=== PATIENT | female | born 1945 | race Hispanic/Latino ===

== ENCOUNTER 2018-01-03 07:37 | Day surgery (SDC) | payer MEDICARE ==
[~2018-01-03] VITALS: Ht 147.3 cm; Wt 51.5 kg
[~2018-01-03 07:37] MED LIST: LEVO137T2 PO; LOSA50TA37 PO; TYL3 PO
[2018-01-03 08:12] VITALS: BP 104/52
[2018-01-03] MEDS ORDERED: SODIUM CHLORIDE 0.9% 1000ML 1,000 ML IV ONE (08:40)
== END 2018-01-03 10:15 | disposition home or self-care (01) ==
LOC: ENDO 07:37 → DAH 07:37 → ENDO 10:15
PROVIDERS: ATTEND Internal Medicine
DX: K21.0 Gastro-esophageal reflux disease with esophagitis (principal); K31.7 Polyp of stomach and duodenum; K31.89 Other diseases of stomach and duodenum; I10 Essential (primary) hypertension; E03.9 Hypothyroidism, unspecified; Z79.899 Other long term (current) drug therapy; Z98.890 Other specified postprocedural states; Z88.8 Allergy status to other drugs, medicaments and biological substances; K29.50 Unspecified chronic gastritis without bleeding
CPT/HCPCS: 43239; 43251; 88305; 88312; 93005; A4606; J7030

== ENCOUNTER → 2018-01-10 | Outpatient (CLI) | payer MEDICARE | END | disposition home or self-care (01) | LOC: RAH 09:47 | PROVIDERS: ATTEND Internal Medicine Gastroenterology | DX: R13.12 Dysphagia, oropharyngeal phase (principal); R63.3 Feeding difficulties | CPT/HCPCS: 74230; 92611; G8996; G8997; G8998 ==

== ENCOUNTER → 2018-01-17 | Outpatient (CLI) | payer MEDICARE | END | disposition home or self-care (01) | LOC: RAH 07:51 | PROVIDERS: ATTEND Internal Medicine Gastroenterology | DX: K57.30 Diverticulosis of large intestine without perforation or abscess without bleeding (principal); I70.0 Atherosclerosis of aorta; M51.36 Other intervertebral disc degeneration, lumbar region | CPT/HCPCS: 74176 ==

== ENCOUNTER 2020-01-29 18:16 | Observation (INO) | payer MEDICARE ==
[~2020-01-29] VITALS: Ht 137.2 cm; Wt 45.4 kg
[~2020-01-29 18:16] MED LIST changes: -LOSA50TA37 PO; +LOSA50TA64 PO
[2020-01-29 20:24] LABS: BASOPHILS % (AUTO) 0.9 % (0.0-5.0); EOSINOPHILS % (AUTO) 5.2 % (0.0-8.0); HEMATOCRIT 35.5 % (36-48); LYMPHOCYTES % (AUTO) 18.2 % (21.0-51.0); MEAN CORPUSCULAR HEMOGLOBIN 27.7 pg (27.0-33.0); MEAN CORPUSCULAR VOLUME 89.4 fL (79-99); MONOCYTES % (AUTO) 9.2 % (3.0-13.0); NEUTROPHILS % (AUTO) 66.2 % (40.0-77.0); PLATELET COUNT (AUTO) 235 K/uL (130-400); RED BLOOD CELL COUNT(AUTO) 3.97 MIL/uL (4.00-5.50); RED CELL DISTRIBUTION WIDTH 13.1 % (11.0-15.5); WHITE BLOOD COUNT (AUTO) 3.3 K/uL (4.8-10.8)
[2020-01-29 20:35] LABS: CREATININE 0.8 mg/dL (0.5-1.5); POTASSIUM 3.8 mmol/L (3.5-5.1)
[2020-01-29 20:39] LABS: ALBUMIN 2.8 g/dL (3.5-5.0); BILIRUBIN,TOTAL 0.3 mg/dL (0.2-1.0); TOTAL PROTEIN, SERUM 7.1 g/dL (6.0-8.3)
[2020-01-29] MEDS ORDERED: ACETAMINOPHEN 650 MG SUPPOSITORY RC PRN (20:45)
[2020-01-29] MEDS ORDERED: ONDANSETRON HCL 4 MG/2 ML VIAL IVP PRN (20:45)
[2020-01-29 21:26] LABS: APPEARANCE,URINE Clear (CLEAR); BILIRUBIN,URINE Negative (NEGATIVE); COLOR,URINE Yellow (YELLOW); GLUCOSE, URINE (UA) Negative (NEGATIVE); KETONES,URINE Negative (NEGATIVE); LEUKOCYTE ESTERASE ,URINE Moderate (NEGATIVE); NITRATE,URINE Negative (NEGATIVE); OCCULT BLOOD,URINE Moderate (NEGATIVE); PH,URINE 6.5 (5.0-8.0); PROTEIN,URINE Negative (NEGATIVE)
[2020-01-29 21:57] LABS: BACTERIA,URINE Few /HPF (None Seen)
[2020-01-29 23:10] VITALS: BP 155/61
[2020-01-30] VITALS (19 sets, daily range): BP systolic 127–178; BP diastolic 54–93
--- NOTE | 2020-01-30 01:58 | NUR ---
stoma wound on left abdomen cleaned with normal saline, 4 x 4 gauze, medicortape, and picture taken and placed on chart.
[2020-01-30] MEDS ORDERED: PROPOFOL 10 MG/ML 20ML VIAL IV ONE ×2 (12:52→13:19)
--- NOTE | 2020-01-30 13:35 | NUR ---
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
[2020-01-30] MEDS: HYDRALAZINE HCL 20 MG/ML VIAL IV PRN (15:01)
[2020-01-30] MEDS: CEFTRIAXONE SODIUM 1 GM IVP SCH ×2 (15:01→20:48)
[2020-01-30] MEDS: SODIUM CHLORIDE 0.9% 1000ML 1,000 ML IV SCH ×2 (15:01→23:25)
--- NOTE | 2020-01-30 16:03 | NUR ---
DCP CM met with pt discussed dc plans. Pt is independent prior to admission, lives with daughter. Pt has a cane and provider daily. Denies any other equipmens/services. Feels safe to go back home, daughter able to assist with transportation and needs as necessary. DC plan to home once stable. CM to cont to follow up. Addendum: 01/30/20 at 1604 by GUDELIA GARCIA LVN CM Amended: Links added.
[2020-01-31 00:05] VITALS: BP 139/70
[2020-01-31] MEDS: HYDRALAZINE HCL 20 MG/ML VIAL IV PRN (03:06)
[2020-01-31 04:00] VITALS: BP 115/53
[2020-01-31] MEDS ORDERED: LEVOTHYROXINE 25 MCG TABLET PO SCH (06:30)
[2020-01-31] MEDS ORDERED: LEVOTHYROXINE 112 MCG TABLET PO SCH (06:30)
[2020-01-31 07:54] VITALS: BP 131/63
--- NOTE | 2020-01-31 08:15 | NUR ---
Called to notify bakery helper of consultation for tube feedings. Karen almeida.
[2020-01-31] MEDS ORDERED: LOSARTAN 50 MG TABLET PO SCH (09:00)
--- NOTE | 2020-01-31 09:07 | NUR ---
Notified spooler operator automatic Karen information regarding diet that patient had at home with Twocal bolus feedings and free water flushes provided by daughter. Karen to bring recommendation to begin tube feedings.
[2020-01-31] MEDS: SODIUM CHLORIDE 0.9% 1000ML 1,000 ML IV SCH ×2 (09:59→12:23)
--- NOTE | 2020-01-31 10:29 | NUR ---
RD NOTIFICATION Pt admitted with dislodged PEG tube. Recommend continue Tube Feedings: Recommend Jevity 1.5 continuous or Bolus feedings as needed. Continuous: Goal of 35mls/hour to provide 1260kcal, 54gm protein, 638mL free H2O Flushes: 105mL [id number] Bolus: 3.5 cans per day to provide 1243kcal, 53gm protein, 630mL Free H2O (8AM-1.5cans, 12PM-1can, 5PM-1can) Flushes 70-100mL before and after each feeding. Recommendations placed in Pt chart. RD to continue to monitor. Please notify as questions or concerns arise. Thank you. [phone]. Addendum: 01/31/20 at [address] RD Amended: Links added.
[2020-01-31 11:07] VITALS: BP 123/67
[2020-01-31] MEDS: CEFTRIAXONE SODIUM 1 GM IVP SCH (12:23)
--- NOTE | 2020-01-31 12:43 | NUR ---
RD UPDATE - TUBE FEEDING CHANGE PER FAMILY REQUEST RD notified Pt with Two Jae HN formula requested, Pt does not tolerate Jevity 1.5, per Family. Bolus feedings requested. Recommend Two Jae HN Bolus with 3 cans/day to provide 1425 kcal, 60gm protein, 498mL Free H2O. (8AM-1can, 12PM-1can, 5PM-1can). Recommended flushes: 85mls before and after each feeding. Recs to be placed in Pt chart. Please notify RD as additional concerns arise.
--- NOTE | 2020-01-31 13:30 | NUR ---
Resumed bolus feeding of Twocal HD with 80mL free water flushes. PEG patent, no report of pain or discomfort during PEG feeding by patient. PEG insertion site clean and dry, free of redness or irritation. HOB 45 degree angle, IV NS infusing at 75 mL/hr to LAC. Bed low, locked. Call randall within reach.
--- NOTE | 2020-01-31 15:09 | NUR ---
Called daughter Sydnee to review discharge instructions, PEG insertion site care and symptoms of infection or irritation to be cognisant and report if present. Patient to resume home medications and home feeding schedule with Twocal formula. Daughter verbalized understanding of instructions and will be arriving to hospital shortly to transport patient home.
--- NOTE | 2020-01-31 15:32 | NUR ---
Reviewed discharge instructions, medications and follow up recommendations with patient. Verbalized understanding that would resume home medications and bolus PEG feedings and stated her daughter would assist with her care and follow up arrangements. PIV to LAC removed, bleeding controlled and dressing applied. Patient stated unable to sign discharge. Patient assisted downstairs by Larry Mtz CNA via wheelchair, where daughter received to transport home.
== END 2020-01-31 15:55 | disposition home or self-care (01) ==
LOC: EDH 18:16 → EDHIP 20:15 → 3BH 23:16
PROVIDERS: ADMIT Internal Medicine; ATTEND Internal Medicine
DX: J38.00 Paralysis of vocal cords and larynx, unspecified (principal); K29.50 Unspecified chronic gastritis without bleeding; R13.12 Dysphagia, oropharyngeal phase; R63.4 Abnormal weight loss; I10 Essential (primary) hypertension; E03.9 Hypothyroidism, unspecified; Z43.1 Encounter for attention to gastrostomy; Z85.828 Personal history of other malignant neoplasm of skin; Z92.3 Personal history of irradiation; Z79.899 Other long term (current) drug therapy; Z88.6 Allergy status to analgesic agent; Z68.24 Body mass index [BMI] 24.0-24.9, adult
CPT/HCPCS: 36415; 43246; 80053; 81001; 85025; 87088; 96374; 96375 ×2; 96376 ×2; 99284; A4222; A4223; A4620; G0378 ×43; J0360 ×2; J0696 ×2; J2405; J2704 ×2; J7030 ×2; 43200

== ENCOUNTER → 2020-02-18 | Outpatient (CLI) | payer MEDICARE | END | disposition home or self-care (01) | LOC: SHCH 15:11 | PROVIDERS: ATTEND Internal Medicine Cardiovascular Disease | DX: I82.621 Acute embolism and thrombosis of deep veins of right upper extremity (principal) ==

== ENCOUNTER 2021-11-15 10:38 | Day surgery (SDC) | payer MEDICARE ==
[~2021-11-15] VITALS: Ht 149.9 cm; Wt 54.8 kg
[~2021-11-15 10:38] MED LIST changes: +0.9%NACL 1000ML 1,000 ML IV ONE
[2021-11-15 11:33] VITALS: BP 104/63
[2021-11-15] MEDS ORDERED: LIDOCAINE PF 100MG/5ML (2%) SYRINGE 5ML ONE (12:26)
[2021-11-15] MEDS ORDERED: PROPOFOL 10 MG/ML 20ML VIAL IV ONE (12:26)
[2021-11-15] MEDS ORDERED: GLYCOPYRROLATE 1 MG/5 ML SYRINGE ONE (12:26)
[2021-11-15] MEDS ORDERED: MIDAZOLAM HCL 1 MG/ML 2ML VIAL ONE (12:26)
[2021-11-15] MEDS ORDERED: TRAZ-185 PO (12:58)
[2021-11-15] MEDS ORDERED: CYAN50009 PO (12:59)
[2021-11-15] MEDS ORDERED: METO25TA6 PO (12:59)
[2021-11-15] MEDS ORDERED: LEVO100C4 PO (13:00)
[2021-11-15] MEDS ORDERED: DICY20TA3 PO (13:00)
[2021-11-15] MEDS ORDERED: ONDA4TAB10 PO (13:00)
== END 2021-11-15 11:45 | disposition home or self-care (01) ==
LOC: ENDO 10:38 → DAH 10:38 → ENDO 11:45
PROVIDERS: ATTEND Internal Medicine Gastroenterology
DX: R13.12 Dysphagia, oropharyngeal phase (principal); Z20.822 Contact with and (suspected) exposure to COVID-19; K22.2 Esophageal obstruction; R19.7 Diarrhea, unspecified; K21.9 Gastro-esophageal reflux disease without esophagitis; I10 Essential (primary) hypertension; E03.9 Hypothyroidism, unspecified; Z93.1 Gastrostomy status; Z98.890 Other specified postprocedural states; Z79.899 Other long term (current) drug therapy
CPT/HCPCS: 43200; 87635; A4215 ×2; A4221; A4222; A4223; A4606; A4620; A4657; A4663; C9803; J2001; J2250; J2704; J3490; J7030

== ENCOUNTER → 2023-12-13 | Outpatient (CLI) | payer MEDICARE ==
[~2023-12-13] MED LIST changes: -0.9%NACL 1000ML 1,000 ML IV ONE; +CYAN50009 PO; +DIATR MEGLU/DIATRIZOATE SODIUM 30 ML BOTTLE ONE; +DICY20TA3 PO; +GADOTERATE MEGLUMINE 10 MMOL/20 ML VIAL IV ONE; +LEVO100C4 PO; -LEVO137T2 PO; -LOSA50TA64 PO; +METO25TA6 PO; +ONDA4TAB10 PO; +TRAZ-185 PO; -TYL3 PO
== END | disposition home or self-care (01) ==
LOC: RAH 12:40
PROVIDERS: ATTEND Physician Assistant Medical
DX: Z43.1 Encounter for attention to gastrostomy (principal)
CPT/HCPCS: 74018; Q9963; A9575

== ENCOUNTER → 2024-10-21 | Outpatient (CLI) | payer MEDICARE ==
[~2024-10-21] MED LIST changes: -GADOTERATE MEGLUMINE 10 MMOL/20 ML VIAL IV ONE; +ONDA-243 PO; -ONDA4TAB10 PO
--- NOTE | 2024-10-21 15:54 | HMCIMG ---
ABD 1VW REASON: peg tube placement, 30 ml of gastrografin used FINDINGS: Single image of the abdomen was obtained. There is a feeding tube with retaining balloon present within the stomach. Contrast outlines the stomach and duodenal C-loop without evidence of leak. IMPRESSION: 1. Feeding tube in good position within the stomach.
== END | disposition home or self-care (01) ==
LOC: RAH 15:16
PROVIDERS: ATTEND Internal Medicine Gastroenterology
DX: R13.12 Dysphagia, oropharyngeal phase (principal); R63.30 Feeding difficulties, unspecified; K80.20 Calculus of gallbladder without cholecystitis without obstruction; I10 Essential (primary) hypertension; E03.9 Hypothyroidism, unspecified; Z93.1 Gastrostomy status
CPT/HCPCS: 74018; Q9963